=== PATIENT | female | born 1975 | race Caucasian/White ===

== ENCOUNTER 2018-01-10 05:55 | Inpatient (IN) | payer BC, OTHER ==
[2018-01-10] MEDS: IV RINGERS,LACTATED 1000ML 1,000 ML IV (06:52)
[2018-01-10] MEDS ORDERED: PROCHLORPERAZINE 10 MG/2 ML VIAL. IV ×2 (07:00→13:00)
[2018-01-10] MEDS ORDERED: ONDANSETRON PF 4 MG/2 ML VIAL. IV (07:00)
[2018-01-10] MEDS ORDERED: fentaNYL PF VIAL 100 MCG/2 ML VIAL IV ×2 (07:00→13:00)
[2018-01-10] MEDS ORDERED: MORPHINE SULFATE 4 MG/ML DISP.SYRIN. IV ×2 (07:00→13:00)
[2018-01-10] MEDS ORDERED: LIDOCAINE 1% PF 2 ML VIAL. ID (07:00)
[2018-01-10] MEDS ORDERED: fentaNYL PF VIAL 100 MCG/2 ML VIAL ×3 (07:13→10:58)
[2018-01-10] MEDS ORDERED: FAMOTIDINE 20 MG/2 ML VIAL (07:13)
[2018-01-10] MEDS ORDERED: MIDAZOLAM HCL/PF 2 MG/2 ML VIAL. (07:13)
[2018-01-10] MEDS ORDERED: ROCURONIUM 50 MG/5 ML VIAL. (07:13)
[2018-01-10] MEDS ORDERED: LIDOCAINE 2% PF Vial for OR 5 ML VIAL. (07:13)
[2018-01-10] MEDS ORDERED: DEXAMETHASONE SOD PHOS 20 MG/5 ML VIAL. (07:13)
[2018-01-10] MEDS ORDERED: ONDANSETRON PF 4 MG/2 ML VIAL. (07:13)
[2018-01-10] MEDS ORDERED: PROPOFOL 20 ML IV (07:13)
[2018-01-10] MEDS: BUPIVACAINE-EPI 0.25%-1:200000 50 ML VIAL. (08:46)
[2018-01-10] MEDS ORDERED: NEOSTIGMINE METHYLSULFATE 5 MG/5 ML SYRINGE. (09:48)
[2018-01-10] MEDS ORDERED: GLYCOPYRROLATE 1 MG/5 ML VIAL. (09:48)
[2018-01-10] MEDS ORDERED: SEVOFLURANE > 120 MINUTES. IH (09:48)
[2018-01-10] MEDS: fentaNYL PF VIAL 100 MCG/2 ML VIAL IV ×4 (10:24→11:32)
[2018-01-10] MEDS: KETOROLAC 30 MG/ML INJ. IV ×2 (12:40→17:16)
[2018-01-10] MEDS: MORPHINE SULFATE 4 MG/ML DISP.SYRIN. IV ×2 (12:40→17:16)
[2018-01-10] MEDS ORDERED: 0.9 % SODIUM CHLORIDE 10 ML DISP.SYRIN. IV (13:00)
[2018-01-10] MEDS ORDERED: CALCIUM CARBONATE 500 MG TAB.CHEW PO (13:00)
[2018-01-10] MEDS ORDERED: DEXTROSE 50% 25 GM / 50ML DISP.SYRIN. IV (13:00)
[2018-01-10] MEDS ORDERED: HYDROcodone/APAP 10/325 1 TAB TABLET PO (13:00)
[2018-01-10] MEDS ORDERED: ACETAMINOPHEN 325 MG TABLET. PO (13:00)
[2018-01-10] MEDS ORDERED: diphenhydrAMINE 50 MG/ML VIAL IV (13:00)
[2018-01-10] MEDS: oxyCODONE/APAP 7.5/325 1 TAB TABLET PO ×2 (13:41→23:01)
[2018-01-10] MEDS: IV DEXTROSE 5 %-0.45 % NACL 1,000 ML IV (16:55)
[2018-01-10] MEDS: oxyCODONE ER 10 MG TAB.ER.12H PO (17:17)
[2018-01-10] MEDS: KETOROLAC TROMETHAMINE 10 MG TABLET PO (18:00)
[2018-01-11] MEDS: ZOLPIDEM 5 MG TABLET. PO (02:21)
[2018-01-11] MEDS ORDERED: MAGNESIUM HYDROXIDE 2,400 MG/30 ML ORAL.SUSP. PO (06:00)
[2018-01-11] MEDS: SENNOSIDES/DOCUSATE 8.6/50MG TABLET. PO (10:33)
[2018-01-11] MEDS: HYDROcodone/APAP 7.5/325MG 1 TAB TABLET PO (10:34)
[2018-01-11] MEDS ORDERED: BISACODYL 10 MG SUPP.RECT. PR (16:00)
[2018-01-11] MEDS: oxyCODONE ER 10 MG TAB.ER.12H PO (18:00)
== END 2018-01-11 18:48 | disposition home or self-care (01) | DRG 502 ==
LOC: SURG 05:55 → 4 NORTH 11:20
PROC: 0MBL4ZZ Excision of Right Hip Bursa and Ligament, Percutaneous Endoscopic Approach (ICD-10-PCS; principal; 2018-01-10 07:30)
PROC: 0MBM4ZZ Excision of Left Hip Bursa and Ligament, Percutaneous Endoscopic Approach (ICD-10-PCS; 2018-01-10 07:30)
PROC: 0LN Tendons, Release (ICD-10-PCS; 2018-01-10 07:30)
PROC: 0LN Tendons, Release (ICD-10-PCS; 2018-01-10 07:30)
DX: M70.62 Trochanteric bursitis, left hip (principal); Z88.2 Allergy status to sulfonamides; M70.61 Trochanteric bursitis, right hip; Y93.89 Activity, other specified; Z88.8 Allergy status to other drugs, medicaments and biological substances
CPT/HCPCS: 97110-GP; 97116-GP; 97162-GP; 97165-GO; 97530-GP; A7015; G0378; G0379; G8978-CJ-GP; G8979-CI-GP; G8980-CI-GP; J0690; J1100; J1885; J2250; J2270; J2405; J2704; J2710; J3010; J3490; J7120; S0028